=== PATIENT | female | born 1955 | race Caucasian/White ===

== ENCOUNTER → 2019-05-29 16:34 | Outpatient (BNVA) | payer MEDICARE, SELFPAY | PROVIDERS: Family Provider Family Medicine; Visit Provider Registered Nurse | DX: E11.9 Type 2 diabetes mellitus without complications (principal); R05 Cough; R50.9 Fever, unspecified; M79.7 Fibromyalgia | CPT/HCPCS: 80053; 80061; 83036; 85025; 87400 ==

== ENCOUNTER → 2020-05-03 10:50 | Outpatient (BNVA) | payer MEDICARE, SELFPAY | PROVIDERS: Family Provider Family Medicine; Visit Provider Registered Nurse | DX: E11.9 Type 2 diabetes mellitus without complications (principal); I10 Essential (primary) hypertension; E78.5 Hyperlipidemia, unspecified; R32 Unspecified urinary incontinence | CPT/HCPCS: 80053; 80061; 81000; 83036; 85025 ==

== ENCOUNTER 2020-06-04 10:21 | Outpatient (CLI) | payer MEDICARE, SELFPAY ==
--- NOTE | 2020-06-04 11:00 | MR_ITS ---
WS: [id number] MRI LUMBAR SPINE NONCONTRAST TECHNIQUE: Sagittal T1, T2 and STIR imaging. Axial T1 and T2 imaging. CLINICAL INFORMATION: S39.012A - Strain of muscle, fascia and tendon of lower back, initial encounter COMPARISON: None. FINDINGS: Mild lumbar curve. No acute compression. No high-grade central canal stenosis. Slight anterolisthesis L4 on L5. Schmorl's nodes with mild disc bulginglower thoracic spine. L1-L2: Mild annular bulging. Mild facet arthropathy. Spinal canal and foramen are patent. L2-L3: Mild disc bulging with slight effacement of the ventral thecal sac. Moderate narrowing of the thecal sac. Prominent dorsal epidural fat contributes to stenosis. Mild facet arthropathy. Mild bilat eral foraminal narrowing. L3-L4: Mild annular bulging with slight effacement of the ventral thecal sac and right subarticular r ecess. Mild right and no significant left foraminal narrowing. Mild facet arthropathy. L4-L5: Slight anterolisthesis. Mild disc bulging with osteophytic ridging. Moderate central canal marcus nosis. Prominent dorsal epidural fat contributes to thecal sac narrowing. Impingement traversing left greater than right L5 nerve roots. Moderate to advanced facet arthropathy. Mild right and no signifi cant left foraminal narrowing. L5-S1: Disc osteophyte complex with endplate ridging. Mild facet arthropathy. Slight effacement of th e ventral thecal sac. Mild bilateral foraminal narrowing. Visualized pelvic bony structures: Normal. Paravertebral soft tissues: Normal. MR/MR lumbar spine wo con* [id number] IMPRESSION: 1. Mild lumbar curve. No acute compression. Slight anterolisthesis L4 on L5. 2. Moderate central canal stenosis L4-5 due to slight anterolisthesis with mil d disc bulging and facet arthropathy. 3. Mild to moderate central canal stenosis L2-3 due to disc bulging with a tin y central protrusion. Prominent dorsal epidural fat contributes to stenosis. 4. Multilevel mild bony foraminal narrowing worse at bilateral L2-L3, right L3 -4, and right L4-5 5. Moderate to advanced facet arthropathy L4-5.
== END 2020-06-04 10:22 | disposition home or self-care (01) ==
LOC: RADSHAW 10:27
PROVIDERS: Family Provider Family Medicine; PCP Registered Nurse; Visit Provider Registered Nurse
DX: S39.012A Strain of muscle, fascia and tendon of lower back, initial encounter (principal); M47.816 Spondylosis without myelopathy or radiculopathy, lumbar region; M48.061 Spinal stenosis, lumbar region without neurogenic claudication; M51.26 Other intervertebral disc displacement, lumbar region; X58.XXXA Exposure to other specified factors, initial encounter
CPT/HCPCS: 72148

== ENCOUNTER → 2020-06-23 10:22 | Outpatient (BNVA) | payer MEDICARE, SELFPAY | PROVIDERS: Family Provider Family Medicine; PCP Registered Nurse; Referring Provider Registered Nurse; Visit Provider Anesthesiology Pain Medicine | DX: M54.9 Dorsalgia, unspecified (principal); M47.816 Spondylosis without myelopathy or radiculopathy, lumbar region; M51.16 Intervertebral disc disorders with radiculopathy, lumbar region; M48.061 Spinal stenosis, lumbar region without neurogenic claudication | CPT/HCPCS: 99205 ==

== ENCOUNTER → 2020-10-20 11:08 | Outpatient (BNVA) | payer MEDICARE, SELFPAY | PROVIDERS: Family Provider Family Medicine; PCP Registered Nurse; Visit Provider Registered Nurse | DX: L02.91 Cutaneous abscess, unspecified (principal) | CPT/HCPCS: 87070; 87077; 87184 ==

== ENCOUNTER 2020-11-04 10:08 | Outpatient (CLI) | payer MEDICARE, SELFPAY | END 2020-11-04 10:09 | disposition home or self-care (01) | LOC: WOUND 10:09 | PROVIDERS: Family Provider Family Medicine; PCP Registered Nurse; Visit Provider Emergency Medicine | DX: L98.492 Non-pressure chronic ulcer of skin of other sites with fat layer exposed (principal) | CPT/HCPCS: 11042; G0463 ==

== ENCOUNTER 2020-11-11 10:35 | Outpatient (CLI) | payer MEDICARE, SELFPAY | END 2020-11-11 10:36 | disposition home or self-care (01) | LOC: WOUND 10:40 | PROVIDERS: Family Provider Family Medicine; PCP Registered Nurse; Visit Provider Emergency Medicine | DX: E11.622 Type 2 diabetes mellitus with other skin ulcer (principal); L98.492 Non-pressure chronic ulcer of skin of other sites with fat layer exposed | CPT/HCPCS: 11042 ==

== ENCOUNTER 2020-11-18 11:03 | Outpatient (CLI) | payer MEDICARE, SELFPAY | END 2020-11-18 11:04 | disposition home or self-care (01) | LOC: WOUND 11:04 | PROVIDERS: Family Provider Family Medicine; PCP Registered Nurse; Visit Provider Emergency Medicine | DX: E11.622 Type 2 diabetes mellitus with other skin ulcer (principal); L98.492 Non-pressure chronic ulcer of skin of other sites with fat layer exposed | CPT/HCPCS: 11042 ==

== ENCOUNTER 2020-11-25 10:45 | Outpatient (CLI) | payer MEDICARE, SELFPAY | END 2020-11-25 10:46 | disposition home or self-care (01) | LOC: WOUND 11:15 | PROVIDERS: Family Provider Family Medicine; PCP Registered Nurse; Visit Provider Emergency Medicine | DX: Z09 Encounter for follow-up examination after completed treatment for conditions other than malignant neoplasm (principal) | CPT/HCPCS: 99212 ==

== ENCOUNTER → 2021-09-13 10:17 | Outpatient (BNVA) | payer MEDICARE, SELFPAY | PROVIDERS: Family Provider Family Medicine; PCP Registered Nurse; Visit Provider Registered Nurse | DX: I10 Essential (primary) hypertension (principal); E11.9 Type 2 diabetes mellitus without complications; E78.5 Hyperlipidemia, unspecified | CPT/HCPCS: 80053; 80061; 81000; 83036; 85025 ==

== ENCOUNTER → 2022-09-14 08:46 | Outpatient (BNVA) | payer BC, SELFPAY | PROVIDERS: Family Provider Family Medicine; PCP Registered Nurse; Visit Provider Nurse Practitioner Family | DX: N39.0 Urinary tract infection, site not specified (principal); E11.9 Type 2 diabetes mellitus without complications; I10 Essential (primary) hypertension; R32 Unspecified urinary incontinence | CPT/HCPCS: 81000 ==

== ENCOUNTER → 2022-10-19 09:05 | Outpatient (BNVA) | payer BC, SELFPAY | PROVIDERS: Family Provider Family Medicine; PCP Registered Nurse; Visit Provider Nurse Practitioner | DX: R19.8 Other specified symptoms and signs involving the digestive system and abdomen (principal); N39.0 Urinary tract infection, site not specified | CPT/HCPCS: 81003; 87077; 87086; 87184 ==